=== PATIENT | female | born 1945 | race Caucasian/White ===

== ENCOUNTER → 2017-02-10 | Outpatient (CLI) | payer MEDICARE, OTHER ==
[~2017-02-10] MED LIST: ALPRAZOLAM0.5 MG PO; ASPIRIN CHEWABL81 MG PO; FLOVENT DISKUS50 MCG INH; HYDROCHLOROTHIA25 MG PO; IBUPROFEN800 MG PO; INDERAL TAB 4040 MG PO; LEVAQUIN750 MG PO; LIDODERM PATCH 51 EA EXT; LISINOPRIL20 MG PO; LOPRESSOR 25 MG25 MG PO; LORCET HD 10-31 EACH PO; PLAVIX 75 MG TA75 MG PO; PROVENTIL HFA 61 INH INH; SPIRIVA HANDIH18 MCG INH; SYNTHROID125 MCG PO; TRAMADOL HCL50 MG PO; TUMS/TITRALAC500 MG PO; TYLENOL 325MG325 MG PO; ZOCOR20 MG PO
== END ==
LOC: HEART 5 13:25
DX: I83.93 Asymptomatic varicose veins of bilateral lower extremities (principal)